=== PATIENT | female | born 1935 | race Caucasian/White ===

== ENCOUNTER 2022-01-31 00:01 | Day surgery (SDC) | payer MEDICARE, SELFPAY ==
[2021-12-31 07:56] VITALS: BMI 28.0
--- NOTE | 2021-12-31 09:30 | PC.NURSE ---
Report to the Outpatient Waiting Room, entrance under the green pavilion located off [facility], at time __0600 on date ___01/03/22____. OR Time: __729 . - You and your visitor will be asked a series of questions to screen for COVID 19 for your protection. - A mask is required within the hospital. Preoperative COVID Testing Requirements: No COVID Test needed if: (proof is required; if not received patient will have Rapid Test prior to entry) - Patient has received COVID Vaccine at least 14 days prior to procedure date or - Patient has positive COVID test result within last 90 days of surgery date. COVID Test needed if above criteria is not met If not COVID vaccinated a COVID test must be conducted within 72 hours of surgery and patient is asked to isolate self from time of testing until procedure. You will go to the [facility] for your COVID testing. The [facility] is located at the corner of [address] [facility]. You will only be called if COVID results are positive and your surgeon may reschedule your elective surgery date. Patients may have clear liquids (water, carbonated beverages, clear teas, apple juice) until 3 hours prior to surgery with a maximum of 20 ounces. - No food from midnight until time of surgery - Infants may have breast milk until 4 hours before surgery, infant formula 6 hours prior to surgery. - Children will be allowed to drink immediately following surgery. If applicable, please bring a bottle or sippy cup to assist with drinking. Juice, water, soda, and popsicles are readily available. For infants on formula, please bring formula the day of surgery. Pacifiers are allowed. Take the following medications with a SIP of water the morning of surgery: __ATENOLOL,COMBIGAN EYE DROP,CARBIDOPA-LEVODOPA,FLUOXETINE,,NUPLAZID, AND SULFA Medications to discontinue per physician ALL VITAMINS AND SUPPLEMENTS 3 DAYS PRE OP Date to take last dose__12/30/21 Please no make-up, nail malay, hairspray, perfume, deodorant, or body powder the day of surgery. No jewelry (including any body piercings) or valuables the day of surgery, leave them at home. Please take a shower or bath the night before, or the morning of, surgery with an antibacterial soap. Wear comfortable, loose fitting clothing. Children are encouraged to wear pajamas. - Jewelry must be removed prior to entering the operating room. Rings and piercings that are not removed may be cut off. - The hospital will not accept responsibility for valuables. - Please leave all valuables, including medications, at home the day of surgery. If you are going home after surgery, a licensed piledriver carpenter must drive you home. - NO public transportation without another adult. - We recommend that an adult stay with you for 24 hours following discharge. - We also recommend that you do not drive, make important decision, drink alcoholic beverages, or take any drugs that were not prescribed by your health care provider for at least 24 hours after your discharge time. For Pediatric surgeries, we recommend two adults accompany the child home (only one inside the building at this time). One visitor will be allowed to accompany the patient into the hospital. Patients visitor will be instructed to remain with patient at all times or leave the building. We will allow the visitor to come back to the postoperative area when patient is ready. Follow any additional instructions given to you from your surgeon. FAXED instructions given to [facility] 12/31/21 @ 0935 and asked if any additional questions and then verbalized understanding. Patient advised to call surgeon office or pre surgery nurse liaison [phone] if any additional questions.
[2022-01-23 13:17] VITALS: BMI 28.0
--- NOTE | 2022-01-23 13:31 | PC.NURSE ---
Report to the Outpatient Waiting Room, entrance under the green pavilion located off [facility], at time _0630_ on date _01/31/22_. OR Time: _0830_. - You and your visitor will be asked a series of questions to screen for COVID 19 for your protection. - A mask is required within the hospital. One visitor will be allowed to accompany the patient into the hospital. Patients visitor will be instructed to remain with patient at all times or leave the building. We will allow the visitor to come back to the postoperative area when patient is ready. Preoperative COVID Testing Requirements: NONE Patients may have clear liquids (water, carbonated beverages, clear teas, apple juice) until 3 hours prior to surgery (0530 AM) with a maximum of 20 ounces. - No food from midnight until time of surgery Take the following medications with a SIP of water the morning of surgery: _COMBIGAN YEY DROP, CARBIDOPA-LEVODOPA, FLUOXETINE & BACTRIM_ Medications to discontinue per ANESTHESIA - ALL VITAMINS AND SUPPLEMENTS 3 DAYS PRIOR TO SURGERY, Date to take last dose 01/27/22_ Please no make-up, nail welsh, hairspray, perfume, deodorant, or body powder the day of surgery. No jewelry (including any body piercings) or valuables the day of surgery, leave them at home. Please take a shower or bath the night before, or the morning of, surgery with an antibacterial soap. Wear comfortable, loose fitting clothing. - Jewelry must be removed prior to entering the operating room. Rings and piercings that are not removed may be cut off. - The hospital will not accept responsibility for valuables. - Please leave all valuables, including medications, at home the day of surgery. If you are going home after surgery, a licensed power screwdriver operator must drive you home. - NO public transportation without another adult. - We recommend that an adult stay with you for 24 hours following discharge. - We also recommend that you do not drive, make important decision, drink alcoholic beverages, or take any drugs that were not prescribed by your health care provider for at least 24 hours after your discharge time. Follow any additional instructions given to you from your surgeon. Telephone instructions given to _CAREGIVER - ALEJANDRO & [facility]ED TO [facility] _and asked if any additional questions and then verbalized understanding. Patient advised to call surgeon office or pre surgery nurse liaison [phone] if any additional questions.
--- NOTE | 2022-01-23 13:55 | PC.NURSE ---
Addendum entered by Lori Mancuso RN 01/24/22 14:40: NOTIFIED JOSE ANTONIO AT [facility] OF NEW TIME OF 0730 WITH 0600 ARRIVAL, PT TO NOW BE NPO AFTER 0430 EXCEPT MEDS WITH SIP WATER. VERBALIZED UNDERSTANDING. Original Note: CONFIRMED WITH JOSE ANTONIO Chaudhry @ [facility] THAT PRE-OP INSTRUCTIONS RECEIVED
[2022-01-31] VITALS (10 sets, daily range): BP systolic 159–186; BP diastolic 71–90; PULSE 64–78; RESP 12–20; TEMP 36.2–36.3; O2SAT 94–100
--- NOTE | 2022-01-31 06:17 | WPDANESEPPF ---
Anes - Initial Pre Proc Eval Procedure: Operation Date: 01/31/22 07:30 Proposed Procedures p Extract Twenty Eight Teeth, Number Two Through Fifteen and Eighteen Through Thirty-One - Monroe Wallace DMD <Cem Douglas DO - Last Filed: 02/02/22 08:56> Date/Time: 01/31/22 06:17 <Cem Douglas DO - Last Filed: 02/02/22 08:56> Surgeon: Monroe Wallace DMD <Cem Douglas DO - Last Filed: 02/02/22 08:56> Pre Op Diagnosis: Dental Caries <Cem Douglas DO - Last Filed: 02/02/22 08:56> Patient Data Age: 86 Gender: F Height: 1.6 m Weight: 71.75 kg <Cem Douglas DO - Last Filed: 02/02/22 08:56> Allergies Allergy/AdvReac Type Severity Reaction Status Date / Time aripiprazole [From Abilify] Allergy Unknown Verified 01/31/22 06:48 lovastatin Allergy Unknown Verified 12/31/21 12:09 <Cem Douglas DO - Last Filed: 02/02/22 08:56> Home Medications Medication Instructions Recorded Confirmed Type brimonidine-timolol [Combigan] 1 drp EACH EYE BID 12/31/21 01/31/22 History carbidopa-levodopa 0.5 tablet PO BID 12/31/21 01/31/22 History carbidopa-levodopa 1 tablet PO HS 12/31/21 01/31/22 History celecoxib [Celebrex] 100 mg PO PRN PRN 12/31/21 01/31/22 History cholecalciferol (vitamin D3) 50 mcg PO DAILY 12/31/21 01/31/22 History cyanocobalamin (vitamin B-12) 500 mcg PO DAILY 12/31/21 01/31/22 History docusate sodium [Stool Softener] 50 mg PO DAILY 12/31/21 01/31/22 History famotidine 20 mg PO PRN PRN 12/31/21 01/31/22 History fluoxetine 20 mg PO DAILY 12/31/21 01/31/22 History latanoprost [Xalatan] 1 drp EACH EYE HS 12/31/21 01/31/22 History sulfamethoxazole-trimethoprim 80 tablet PO DAILY 12/31/21 01/31/22 History acetaminophen [Tylenol Arthritis] 650 mg PO Q4H PRN 01/23/22 01/31/22 History polyethylene glycol 3350 [GlycoLax] 17 g PO DAILY 01/23/22 01/31/22 History solifenacin [Vesicare] 10 mg PO DAILY 01/23/22 01/31/22 History <Cem Douglas, - Last Filed: 02/02/22 08:56> Patient hx anesthesia problems: none <Nabeel Rouse MD - Last Filed: 01/31/22 07:07> Family hx anesthesia problems: none <Nabeel Rouse MD - Last Filed: 01/31/22 07:07> Results Review: All pre-operative results and documents have been reviewed as part of the pre-operative evaluation. <Cem Douglas DO - Last Filed: 02/02/22 08:56> [facility] Past Medical History Medical History: Medical History (Updated 01/31/22 @ 07:17 by Monroe Wallace DMD) Depression GERD (gastroesophageal reflux disease) Hypertension LIOR (obstructive sleep apnea) Parkinson disease <Cem Douglas DO - Last Filed: 02/02/22 08:56> Surgical History Surgical History: Surgical History (Updated 01/31/22 @ 07:07 by Nabeel Rouse MD) H/O: hysterectomy History of total knee arthroplasty <Cem Douglas DO - Last Filed: 02/02/22 08:56> Social History Social History: Social History Smoking status: Never smoker Living arrangements: assisted living Additional living arrangements comments: [facility] Spiritual care concerns: No <Cem Douglas DO - Last Filed: 02/02/22 08:56> Anes - Eval Final PreProcedure Day of Procedure 01/31/22 06:17 <Cem Douglas DO - Last Filed: 02/02/22 08:56> Patient weight: overweight <Cem Douglas DO - Last Filed: 02/02/22 08:56> Heart: regular rate and rhythm <Cem Douglas DO - Last Filed: 02/02/22 08:56> Lungs: clear to auscultation and normal air movement <Cem Douglas, DO - Last Filed: 02/02/22 08:56> Airway: Mallampati scale class II <Cem Douglas DO - Last Filed: 02/02/22 08:56> Neurological: alert and oriented <Cem Douglas DO - Last Filed: 02/02/22 08:56> Last oral intake: >/= 8 hours <Cem Douglas DO - Last Filed: 02/02/22 08
[2022-01-31] MEDS: LACTATED RINGERS 1,000 ML 30 ML IV CONT (06:59)
--- NOTE | 2022-01-31 07:16 | P.HP_ITS ---
H&P: HPI History of Present Illness Date/Time: 01/31/22 07:16 Chief Complaint: bad teeth PMFSH Past Medical History Medical History (Updated 01/31/22 @ 07:17 by Monroe Wallace DMD) Depression GERD (gastroesophageal reflux disease) Hypertension LIOR (obstructive sleep apnea) Parkinson disease Surgical History Surgical History (Updated 01/31/22 @ 07:07 by Nabeel Rouse MD) H/O: hysterectomy History of total knee arthroplasty Social History Social History Smoking status: Never smoker Living arrangements: assisted living Additional living arrangements comments: [facility] care concerns: No Meds Home Medications and Allergies Home Medications Medication Instructions Recorded Confirmed Type brimonidine-timolol [Combigan] 1 drp EACH EYE BID 12/31/21 01/31/22 History carbidopa-levodopa 0.5 tablet PO BID 12/31/21 01/31/22 History carbidopa-levodopa 1 tablet PO HS 12/31/21 01/31/22 History celecoxib [Celebrex] 100 mg PO PRN PRN 12/31/21 01/31/22 History cholecalciferol (vitamin D3) 50 mcg PO DAILY 12/31/21 01/31/22 History cyanocobalamin (vitamin B-12) 500 mcg PO DAILY 12/31/21 01/31/22 History docusate sodium [Stool Softener] 50 mg PO DAILY 12/31/21 01/31/22 History famotidine 20 mg PO PRN PRN 12/31/21 01/31/22 History fluoxetine 20 mg PO DAILY 12/31/21 01/31/22 History latanoprost [Xalatan] 1 drp EACH EYE HS 12/31/21 01/31/22 History sulfamethoxazole-trimethoprim 80 tablet PO DAILY 12/31/21 01/31/22 History acetaminophen [Tylenol Arthritis] 650 mg PO Q4H PRN 01/23/22 01/31/22 History polyethylene glycol 3350 [GlycoLax] 17 g PO DAILY 01/23/22 01/31/22 History solifenacin [Vesicare] 10 mg PO DAILY 01/23/22 01/31/22 History Allergies Allergy/AdvReac Type Severity Reaction Status Date / Time aripiprazole [From Abilify] Allergy Unknown Verified 01/31/22 06:48 lovastatin Allergy Unknown Verified 12/31/21 12:09 Vital Signs Vital Signs - 24 hr 01/31/22 06:37 Temperature 36.3 C L Pulse Rate 64 Respiratory Rate 16 Blood Pressure 178/74 H Pulse Oximetry 96 Assessment and Plan Assessment and plan (1) Non-restorable tooth: Code(s): K08.89 - Other specified disorders of teeth and supporting structures Status: Acute Assessment and Plan: nonrestorable dentition. full mouth tooth extraction
--- NOTE | 2022-01-31 07:16 | WPDHPUPDATE1 ---
History and Physical Update Update Date/Time: 01/31/22 07:16 History and Physical has been reviewed, including an updated exam of the patient. There are NO changes in the patient's condition. Risks, benefits, and alternatives have been discussed and questions answered. Patient agrees to proceed with procedure.
[2022-01-31] MEDS: OXYMETAZOLINE HCL 0.05% NAS 15 ML BTL (*BKC) 1 SPRAY NASAL (07:46)
[2022-01-31] MEDS: LIDOCAINE 2%-EPI (FOR DENTAL BLOCK) 1.7 ML CARTRIDGE INFILTRATE (07:51)
--- NOTE | 2022-01-31 08:32 | P.OPB_ITS ---
Procedure Note - Brief Procedure Note - Brief Date of procedure: 01/31/22 Pre-op diagnosis: Dental Caries Surgeon: Monroe Wallace DMD Preoperative diagnosis nonrestorable teeth numbers 2-15 and 18 through 31. Postop diagnosis same procedure full mouth tooth extraction. Complications no ne. Estimated blood loss 10cc. Local anesthetic 6cc of 2% lidocaine with 1 1000 epinephrine. Description of the procedure patient was [place] [employer] the anesthesia service who induced general anesthetic. Patient was draped in the usual manner for an intraoral surgical procedure. Oral cavity suctioned free of debris and throat pack placed. Local anesthetic administered. A 15 blade was used to make a sulcular incision in the maxilla. A full- thickness flap raised to the buckle. All maxillary teeth were then removed using elevator and forceps technique complication. Sockets curetted free of debris, alveoloplasty completed with rongeur and irrigated with copious amounts of sterile saline. Gingival tissues reapproximated using 4-0 chromic gut suture in continuous fashion. Attention was turned to the mandible were asulcular incision was made and a full-thickness flap was elevated to the buccal a buccal trough was created using the handpiece around teeth numbers 18 19 20 and 28. All remaining teeth were then removed using elevator forceps technique without complication. Alveoloplasty was completed using rongeur. Sites were irrigated and then closed using 4-0 chromic gut suture in continuous fashion. The oral cavity was suctioned free of debris and the throat pack was removed. Maxillary and mandibular dentures inserted. Gauze packs placed. Care the patient was with then returned to the Anesthesia Service who extubated the patient transferred to recovery in stable condition.
[2022-01-31] MEDS: ACETAMINOPHEN ELIXIR 325 MG/10.15 ML UDC 650 MG PO (09:56)
--- NOTE | 2022-01-31 14:22 | SUR.PHASEII ---
1045: RN called Dr. Wallace's office and spoke with assistant professor of archaeology about persistant bleeding. RN was told to take dentures out and try and locate the spot that was actively bleeding and pack it with gauze and have patient bite down for 40 min and reassess. RN took dentures out and packed mouth about 1055. RN reassessed about 1135. Bleeding slowed way down and we tried to reinsert patient's dentures. We were able to get the lower dentures in but not the the upper dentures. Dr. Wallace's office aware and they said it was okay to leave the upper dentures out for now.
== END 2022-01-31 12:25 | disposition home or self-care (01) ==
PROVIDERS: PCP Family Medicine; Visit Provider Dentist
PROC: (CPT 41899; principal; 2022-01-31 07:30)
DX: K02.9 Dental caries, unspecified (principal); I10 Essential (primary) hypertension; G20 Parkinson's disease; G47.33 Obstructive sleep apnea (adult) (pediatric); K21.9 Gastro-esophageal reflux disease without esophagitis; F32.9 Major depressive disorder, single episode, unspecified
CPT/HCPCS: D7240 ×28; A9270; J0330; J1100; J2405; J2704; J7120